=== PATIENT | female | born 1975 | race African-American/Black ===

== ENCOUNTER 2017-05-25 09:37 | Emergency (ER) | payer MEDICAID ==
[~2017-05-25] VITALS: Ht 172.7 cm; Wt 120.0 kg
[~2017-05-25 09:37] MED LIST: ALBUTEROL MDI; AMIT25TA PO; ASPI-496 PO; LISI40TA PO; PROP20TA PO; RANI300C PO; [UNRECOGNIZED DRUG - OTHER]
[2017-05-25 09:40] VITALS: BP 140/84
== END 2017-05-25 10:28 | disposition left against medical advice (07) ==
LOC: ED 10:26
DX: M25.572 Pain in left ankle and joints of left foot (principal); K21.9 Gastro-esophageal reflux disease without esophagitis; J45.909 Unspecified asthma, uncomplicated
CPT/HCPCS: 99281